=== PATIENT | female | born 2000 ===

== ENCOUNTER 2022-08-21 10:14 | Outpatient (CLI) | payer OTHER | END 2022-08-21 11:27 | disposition home or self-care (01) | LOC: PRENATAL 10:14 | PROVIDERS: ATTEND Obstetrics & Gynecology Maternal & Fetal Medicine | DX: O36.80X0 Pregnancy with inconclusive fetal viability, not applicable or unspecified (principal); Z3A.01 Less than 8 weeks gestation of pregnancy ==